=== PATIENT | female | born 1995 | race Caucasian/White ===

== ENCOUNTER 2018-10-03 10:58 | Emergency (ER) | payer SELFPAY ==
--- NOTE | 2018-10-03 12:20 | ER Document Report ---
ED Medical Screen (RME) - General Chief Complaint: Flu Symptoms Stated Complaint: FLU SYMPTOMS Time Seen by Provider: 10/03/18 12:08 Primary Care Provider: SULAIMAN NGO MD [Primary Care Provider] - Follow up as needed Notes: 23-year-old female patient emergency for chief complaint of fever, chills, sweats, passing out. Patient states that she feels like she is dying. Has a sore throat, cough. Symptoms have been getting worse over the last 4 days. Just finished her period. First day of last menstrual period was September 30. I have greeted and performed a rapid initial assessment of this patient. A comprehensive ED assessment and evaluation of the patient, analysis of test results and completion of the medical decision making process will be conducted by additional ED providers. TRAVEL OUTSIDE OF THE [place] IN LAST 30 DAYS: No - Related Data Allergies/Adverse Reactions: No Known Allergies Allergy (Unverified 10/03/18 11:00) Past Medical History - Social History Frequency of alcohol use: Rare Renal/ Medical History: Denies: Hx Peritoneal Dialysis Doctor's Discharge - Discharge Referrals: SULAIMAN NGO MD [Primary Care Provider] - Follow up as needed
[2018-10-03] MEDS ORDERED: ONDANSETRON 4 MG TAB.RAPDIS PO ONE (12:35)
[2018-10-03 12:56] LABS: ABSOLUTE LYMPHOCYTES (AUTO) 0.3 10^3/uL (0.5-4.7); ABSOLUTE MONOCYTES (AUTO) 0.4 10^3/uL (0.1-1.4); ABSOLUTE NEUT (AUTO) 3.6 10^3/uL (1.7-8.2); BASOPHILS % (AUTO) 0.2 % (0-2); EOSINOPHILS % (AUTO) 0.2 % (0-6); HEMATOCRIT 39.6 % (36.0-47.0); HEMOGLOBIN 13.6 g/dL (12.0-15.5); LYMPHOCYTES % (AUTO) 7.9 % (13-45); MEAN CORPUSCULAR HEMOGLOBIN 29.8 pg (27.0-33.4); MEAN CORPUSCULAR HGB CONC 34.2 g/dL (32.0-36.0); MEAN CORPUSCULAR VOLUME 87 fl (80-97); MONOCYTES % (AUTO) 9.3 % (3-13); PLATELET COUNT 193 10^3/uL (150-450); RED BLOOD COUNT 4.55 10^6/uL (3.72-5.28); RED CELL DISTRIBUTION WIDTH 12.8 % (11.5-14.0); SEGMENTED NEUTROPHILS % (AUTO) 82.4 % (42-78); TOTAL CELLS COUNTED % (AUTO) 100 %; WHITE BLOOD COUNT 4.4 10^3/uL (4.0-10.5)
[2018-10-03 12:57] LABS: A TYPE INFLUENZA AG POSITIVE (NEGATIVE)
[2018-10-03 12:58] LABS: B INFLUENZA AG NEGATIVE (NEGATIVE)
[2018-10-03 13:10] LABS: ALANINE AMINOTRANSFERASE 17 U/L (9-52); ALBUMIN 4.2 g/dL (3.5-5.0); ALKALINE PHOSPHATASE 63 U/L (38-126); ANION GAP 9 (5-19); ASPARTATE AMINO TRANSFERASE 33 U/L (14-36); BILIRUBIN,DIRECT 0.2 mg/dL (0.0-0.4); BILIRUBIN,TOTAL 0.5 mg/dL (0.2-1.3); BLOOD UREA NITROGEN 9 mg/dL (7-20); CALCIUM 8.8 mg/dL (8.4-10.2); CARBON DIOXIDE 25 mmol/L (22-30); CHLORIDE 104 mmol/L (98-107); GLUCOSE 92 mg/dL (75-110); POTASSIUM 4.1 mmol/L (3.6-5.0); SODIUM 138.4 mmol/L (137-145); TOTAL PROTEIN 7.4 g/dL (6.3-8.2)
[2018-10-03] MEDS ORDERED: ACETAMINOPHEN 325 MG TABLET PO ONE (13:57)
--- NOTE | 2018-10-03 14:03 | ER Document Report ---
HPI - HPI Time Seen by Provider: 10/03/18 12:08 Pain Level: 2 Notes: Patient is a 23-year-old female who presents to the ED complaining of nasal congestion/discharge, dry nonproductive cough, fever, body ache 3-4 days. Patient states that she is still eating and drinking without difficulties, but does have a decreased p.o. intake. She is still urinating normally having normal bowel movements. Patient has been using some [id number] meds for symptoms. She denies any significant past medical history including cardiopulmonary history and immunocompromised conditions. Patient denies any smoking or IV drug use. Patient requesting work note. Denies any current headache, neck pain, sore throat, chest pain, palpitations, syncope, shortness of breath, wheeze, dyspnea, abdominal pain, nausea/vomiting/diarrhea, urinary retention, dysuria, hematuria, or rash. - ROS Systems Reviewed and Negative: Yes All other systems reviewed and negative - REPRODUCTIVE Reproductive: DENIES: : - DERM Skin Color: Normal Past Medical History - Social History Smoking Status: Never Smoker Frequency of alcohol use: Rare Family History: Reviewed & Not Pertinent Patient has suicidal ideation: No Patient has homicidal ideation: No Renal/ Medical History: Denies: Hx Peritoneal Dialysis Vertical Provider Document - CONSTITUTIONAL Agree With Documented VS: Yes Notes: PHYSICAL EXAMINATION: GENERAL: Well-appearing, well-nourished and in no acute distress. A&Ox4. Answers questions appropriately. Moves comfortably w/o notable distress HEAD: Atraumatic, normocephalic. EYES: Pupils equal round and reactive to light, extraocular movements intact, sclera anicteric, conjunctiva are normal. ENT: EAC clear b/l. TM's intact b/l without erythema, fluid, or perforation. Nares patent and with clear discharge. oropharynx no erythema without exudates. No tonsilar hypertrophy without erythema or exudate. No palatine shift. Uvula midline. No tongue protrusion. No drooling, hoarseness, or airway compromise. Moist mucous membranes. No sinus tenderness. NECK: Normal range of motion, supple without significant lymphadenopathy. There is a mobile, non-tender, rubbery textured anterior cerv chain lymph node noted (reported chronic x>6mos). No rigidity/meningismus. LUNGS: Breath sounds clear to auscultation bilaterally and equal. No wheezes rales or rhonchi. No retractions HEART: Regular rate and rhythm without murmurs, rubs, gallops. ABDOMEN: Soft, nontender, nondistended abdomen. No guarding, no rebound. No masses appreciated. Normal bowel sounds present. No CVA tenderness bilaterally. No hepatosplenomegaly. NEUROLOGICAL: Normal speech, normal gait. Normal sensory, motor exams PSYCH: Normal mood, normal affect. SKIN: Warm, Dry, normal turgor, no rashes or lesions noted. - INFECTION CONTROL TRAVEL OUTSIDE OF THE [place] IN LAST 30 DAYS: No Course - Re-evaluation Re-evalutation: 10/03/18 13:58 Patient is an afebrile, well-hydrated, 23-year-old female who presents to the ED with acute URI, suspect influenza. Vitals are acceptable. PE is otherwise unremarkable. No labs or imaging warranted at this time based on H&P. Patient has no significant cardiopulmonary or immunocompromised medical conditions. Patient's lungs are clear to auscultation bilaterally without tachycardia, hypoxia, or tachypnea. Patient is tolerating p.o. without any difficulties. Tylenol given PO. Thoroughly reviewed the risks, benefits, potential side effects, estimated cost without insurance with patient. After thorough review, patient requested Tamiflu at this time. Low suspicion for any meningitis, sepsis, peritonsillar/pharyngeal abscess, respiratory compromise, severe dehydration, or other emergent systemic condition at this time. Patient is aware this condition can change from initial presentation and she needs to monit or symptoms closely. Conservative measures otherwise for symptoms. Recheck with your PCM in 3-5 days. Consider consult with ENT for your noted lymph node, chronic. Return to the ED with any worsening/concerning symptoms otherwise as reviewed in discharge. Patient is in agreement. - Laboratory Result Diagrams: 10/03/18 12:27 10/03/18 12:27 Laboratory results interpreted by me: 10/03/18 12:27 Seg Neutrophils % 82.4 H Lymphocytes % 7.9 L Absolute Lymphocytes 0.3 L Discharge - Discharge Clinical Impression: Acute URI, Influenza Condition: Stable Disposition: HOME, SELF-CARE Additional Instructions: Maintain adequate fluid intake Take meds as directed tylenol/ibuprofen as needed over the counter cold medication as needed for symptoms Humidified air may help Wash your hands regularly Wear a mask when coughing F/u: with your PCM in 3-5 days for a recheck Return to the ED with any fever, worsening pain, chest pain, palpitations, syncope, worsening TINEO, neck pain/stiffness, shortness of breath, wheezing, drooling, trouble swallowing/breathing, abdominal pain, n/v/d, rash, or worsening/concerning symptoms otherwise. Prescriptions: Oseltamivir Phosphate [Tamiflu 75 mg Capsule] 75 mg PO BID #10 capsule Forms: Return to Work Referrals: SULAIMAN NGO MD [Primary Care Provider] - Follow up as needed
[2018-10-03 14:13] VITALS: BP 104/68
--- NOTE | 2018-10-03 16:59 | EKG REPORT ---
SEVERITY:- BORDERLINE ECG - SINUS RHYTHM BORDERLINE T ABNORMALITIES, ANTERIOR LEADS : Confirmed by: Belkis Medrano 03-Oct-2018 16:57:04
== END 2018-10-03 14:10 | disposition home or self-care (01) ==
LOC: ER 10:58
DX: J11.1 Influenza due to unidentified influenza virus with other respiratory manifestations (principal); R09.81 Nasal congestion; R09.89 Other specified symptoms and signs involving the circulatory and respiratory systems; R05 Cough; R50.9 Fever, unspecified; M79.10 Myalgia, unspecified site; R63.0 Anorexia
CPT/HCPCS: 93005; 99283; 36415; 87070; 87880; 85025; 80053; 87804; 93010; S0119

== ENCOUNTER → 2019-01-02 | Day surgery (SDC) | payer OTHER ==
[~2019-01-02] MED LIST: LIDOCAINE 1% INJ-PF (10 MG/ML) 30 ML SDV ONE
--- NOTE | 2019-01-02 15:58 | RADIOLOGY REPORT (SQ) ---
EXAM DESCRIPTION: U/S THYROID/SFT TISS HD NECK COMPLETED DATE/TIME: 01/02/2019 2:29 pm REASON FOR STUDY: R59.0 LOCALIZED ENLARGED LYMPH NODES R59.0 LOCALIZED ENLARGED LYMPH NODES COMPARISON: None. TECHNIQUE: Dynamic and static grayscale images acquired of the localized site of clinical concern an d recorded on PACS. Additional selected color Doppler and spectral images recorded. SITE OF CONCERN: Bilateral submandibular spaces of the neck LIMITATIONS: None. FINDINGS: Bilateral mildly prominent appearing submandibular lymph nodes. On the right one of the l argest measures 2.1 x 1.0 x 1.7 cm. On the left 1.6 x 0.5 x 1.6 cm. These findings correlate to the clinically palpable masses. IMPRESSION: 1. Bilateral mildly prominent submandibular gland lymph nodes. Further evaluation with CT Neck with IV contrast suggested. Differential diagnosis includes inflammatory/ infectious etiolo gies, with the possibility of lymphoproliferative disorders not entirely excluded. TECHNICAL DOCUMENTATION: JOB ID: [id number] [employer]- All Rights Reserved Reading location - IP/workstation name: [email or web address]
== END ==
LOC: RAD 13:05
PROVIDERS: ATTEND Otolaryngology
DX: R59.0 Localized enlarged lymph nodes (principal)
CPT/HCPCS: 88173 ×2; 10005; 76536; J3490

== ENCOUNTER → 2019-01-20 | Outpatient (CLI) | payer OTHER ==
--- NOTE | 2019-01-20 16:18 | RADIOLOGY REPORT (SQ) ---
EXAM DESCRIPTION: CT SOFT TISSUE NECK WITH COMPLETED DATE/TIME: 01/20/2019 3:52 pm REASON FOR STUDY: R59.0 LOCALIZED ENLARGED LYMPH NODES R59.0 LOCALIZED ENLARGED LYMPH NODES COMPARISON: None. TECHNIQUE: Post IV contrasted scanning from skull base through lung apices with review of bone, soft tissue and lung windows. Reconstructed coronal and sagittal MPR images reviewed. All images stored on PACS. All CT scanners at this facility use dose modulation, iterative reconstruction, and/or weight based d osing when appropriate to reduce radiation dose to as low as reasonably achievable (ALARA). [facility]: Dose Right [facility]: CareDose [facility]: Dose Right [facility]: Teradose 4D [facility]: [email or web address] CONTRAST TYPE AND DOSE: contrast/concentration: Isovue 350.00 mg/ml; Total Contrast Delivered: 75.0 ml; Total Saline Delivered: 55.0 ml RENAL FUNCTION: None required. The patient is less than 50 years old. RADIATION DOSE: CT Rad equipment meets quality standard of care and radiation dose reduction techniq ues were employed. CTDIvol: 7.2 mGy. DLP: 195 mGy-cm. . LIMITATIONS: None. FINDINGS: SKULL BASE: Inferior brain parenchyma in the field of view is normal. MAJOR SALIVARY GLANDS: No solid or cystic masses. No inflammatory changes. LYMPHADENOPATHY: Right jugulodigastric 2.2 x 1.5 cm lymph node on axial image 37 and coronal image 13 . Left jugulodigastric lymph node 1.6 x 0.8 cm in size on axial image 37, and sagittal image 30. Fe w scattered posterior triangle lymph nodes are present bilaterally, 7 mm or less in short axis. MUCOSAL MASSES OR ASYMMETRY: No mucosal masses or asymmetry. LARYNX/CORDS: No abnormal findings. VASCULAR STRUCTURES: The major vessels are patent. LUNG APICES: Clear. BONES: Intact. THYROID: Normal size. No masses. PARANASAL SINUSES: Clear. OTHER: No other significant finding. IMPRESSION: Mild bilateral jugulodigastric lymph node enlargement TECHNICAL DOCUMENTATION: JOB ID: [id number] Quality ID # [id number]: Final reports with documentation of one or more dose reduction techniques (e.g., Au tomated exposure control, adjustment of the mA and/or kV according to patient size, use of iterative reconstruction technique) 2010 [employer]- All Rights Reserved Reading location - IP/workstation name: [email or web address]
== END ==
LOC: RAD 15:12
PROVIDERS: ATTEND Otolaryngology
DX: R59.0 Localized enlarged lymph nodes (principal)
CPT/HCPCS: 70491

== ENCOUNTER 2019-02-15 07:39 | Day surgery (SDC) | payer OTHER ==
[~2019-02-15 07:39] MED LIST changes: +CEFAZOLIN 2 GM/D5W RTU 2 GM/50 ML RTUPB IV ONE; +CEFAZOLIN SODIUM 2 GM in DEXTROSE 5%-WATER 100 ML IV SCH; -LIDOCAINE 1% INJ-PF (10 MG/ML) 30 ML SDV ONE
[2019-02-15] MEDS ORDERED: PROPOFOL INJ 200 MG/20 ML VIAL IV ONE (10:44)
[2019-02-15] MEDS ORDERED: KETAMINE HCL INJ 500 MG/10 ML VIAL ONE (10:44)
[2019-02-15] MEDS ORDERED: FENTANYL CITRATE INJ/PF 250 MCG/5 ML AMPULE ONE (10:44)
[2019-02-15] MEDS ORDERED: BUPIVACAINE HCL 0.5%/EPI 1:200000 INJ 1.8 ML CARTRIDGE ONE (10:44)
[2019-02-15] MEDS ORDERED: MIDAZOLAM 2 MG/2 ML INJ ONE (10:44)
[2019-02-15] MEDS ORDERED: BUPIVACAINE HCL 0.5%-EPI 1:200000 INJ/PF 30 ML VIAL ONE (10:45)
[2019-02-15] MEDS ORDERED: LIDOCAINE 2%/EPINEPHRINE INJ 1.7 ML CARTRIDGE ONE (10:55)
[2019-02-15] MEDS ORDERED: OXYMETAZOLINE HCL 0.05% NASAL SPRAY 15 ML BOTTLE ONE (10:58)
[2019-02-15] MEDS ORDERED: MEPERIDINE HCL/PF INJ 25 MG/1 ML DISP.SYRIN IV PRN (11:46)
[2019-02-15] MEDS ORDERED: PROMETHAZINE HCL INJ 25 MG/1 ML VIAL IV PRN ×2 (11:46)
[2019-02-15] MEDS ORDERED: FENTANYL CITRATE INJ/PF 100 MCG/2 ML AMPUL IV PRN ×3 (11:46)
[2019-02-15] MEDS ORDERED: MORPHINE SULFATE 10 MG/ML INJ IV PRN (11:46)
[2019-02-15] MEDS ORDERED: DIPHENHYDRAMINE HCL 50 MG/ML VIAL IV PRN (11:46)
[2019-02-15] MEDS ORDERED: THROMBIN (BOVINE) TOPICAL 20000 UNIT VIAL ONE (12:02)
[2019-02-15] MEDS ORDERED: HYDROCODONE/ACETAMINOPHEN 5-325 MG TABLET ONE (13:18)
--- NOTE | 2019-02-15 13:46 | OPERATIVE REPORT E ---
Operative Report NAME: RICKIE FLORES : 1995 AGE: 23Y DATE OF SURGERY: 02/15/2019 ROOM: HISTORY: A 23-year-old female with a right neck mass. A CT scan was consistent with lymph node. Patient did have a fine needle aspiration biopsy of the right level-II adenopathy which was consistent with a reactive lymphoid process. Since the lymph nodes were large, it was decided to proceed with an excisional biopsy. A CT scan was performed which did identify enlarged level-II adenopathy on the right. The patient presents today for excision of right level-II cervical adenopathy. Informed consent was obtained from the patient. PREOPERATIVE DIAGNOSIS: RIGHT LEVEL-II CERVICAL ADENOPATHY. POSTOPERATIVE DIAGNOSIS: RIGHT LEVEL-II CERVICAL ADENOPATHY. OPERATION: Excision of right level-II cervical adenopathy, a total of 2 lymph nodes were removed. SURGEON: RUBÉN GUPTA MD PIPE ORGAN TECHNICIAN: Jeremy Chacon DO ANESTHESIA: General by endotracheal intubation. PROCEDURE: After receiving informed consent from the patient, she was taken to the operating room and placed supine on the operating room table. After successful induction and intubation by Anesthesia, a shoulder roll placed and then the neck was turned towards the left to expose the right neck. An incision site was marked and infiltrated with 2% Xylocaine 1:100,000 epinephrine. Patient then prepped and draped in sterile fashion. A 15 blade used to make an incision through the skin, subcutaneous tissue, and the platysma. Dissection continued through the cervical fascia where the cervical lymph nodes were identified just superior to the carotid sheath. A total of 2 cervical lymph nodes were removed using a blunt dissection and hemostasis was obtained using the bipolar electrocautery. Once the lymph nodes were removed, the wound bed was inspected. Hemostasis was obtained using bipolar electrocautery. Next, thrombin-soaked Surgicel was placed into the wound bed. The wound was then closed in layers which included the cervical fascia, platysmal layer, and the dermal layer was all closed using 4-0 Monocryl. Next, Dermabond was placed over the wound and Mastisol was also placed. Next, Steri-Strips were applied and then a pressure dressing was applied. Patient successfully given back to anesthesia who successfully extubated the patient without any complications. The estimated blood loss was minimal. Fluids 200 mL of crystalloid. The patient was then transferred to the Post Anesthesia Care Unit in stable condition with spontaneous respirations and no complications. DICTATING PHYSICIAN: RUBÉN GUPTA M.D. [id number] PHY#: [id number] ID: [id number] JOB#: [id number] ACCT: [id number] cc:RUBÉN GUPTA MD >
[2019-02-15] MEDS ORDERED: ONDANSETRON HCL INJ/PF 4 MG/2 ML SDV IV PRN (14:18)
[2019-02-15] MEDS ORDERED: HYDROCODONE/ACETAMINOPHEN 5-325 MG TABLET PO PRN (14:18)
[2019-02-15 14:58] VITALS: BP 112/60
[2019-02-16] MEDS ORDERED: LIDOCAINE 2% INJ-PF (20 MG/ML) 2 ML AMPUL ONE (14:42)
[2019-02-16] MEDS ORDERED: GLYCOPYRROLATE 1 MG/5 ML VIAL ONE (14:42)
[2019-02-16] MEDS ORDERED: ONDANSETRON HCL INJ/PF 4 MG/2 ML SDV ONE (14:42)
[2019-02-16] MEDS ORDERED: SUCCINYLCHOLINE CHLORIDE INJ 200 MG/10 ML VIAL ONE (14:42)
[2019-02-16] MEDS ORDERED: DEXAMETHASONE SOD PHOSPHATE INJ 4 MG/1 ML VIAL ONE (14:42)
== END 2019-02-15 14:15 | disposition home or self-care (01) ==
LOC: OROUT 07:39
PROVIDERS: ATTEND Otolaryngology
DX: R59.0 Localized enlarged lymph nodes (principal)
CPT/HCPCS: 88185 ×15; 88184; 81025; 88233; 88262; 88305 ×2; 00320; 38510; J2250; J3490 ×3; J3010; J2704; J0690; 320